=== PATIENT | female | born 1940 | race Caucasian/White ===

== ENCOUNTER 2023-10-31 07:17 | Outpatient (CLI) | payer MEDICARE | END 2023-10-31 07:18 | disposition home or self-care (01) | LOC: NM 07:17 | PROVIDERS: ATTEND Internal Medicine | DX: R10.13 Epigastric pain (principal); K21.9 Gastro-esophageal reflux disease without esophagitis; K30 Functional dyspepsia | CPT/HCPCS: 78264; A9541 ==

== ENCOUNTER 2024-04-07 13:45 | Outpatient (CLI) | payer MEDICARE | END 2024-04-07 13:46 | disposition home or self-care (01) | LOC: BICMAMMO 13:45 | PROVIDERS: ATTEND Internal Medicine Endocrinology, Diabetes & Metabolism | DX: M85.852 Other specified disorders of bone density and structure, left thigh (principal); M81.0 Age-related osteoporosis without current pathological fracture | CPT/HCPCS: 77080 ==